=== PATIENT | female | born 1930 | race African-American/Black ===

== ENCOUNTER 2017-05-28 12:40 | Inpatient (IN) | payer MEDICARE, MEDICAID ==
[~2017-05-28] VITALS: Ht 167.6 cm; Wt 59.9 kg
[2017-05-28] MEDS ORDERED: AMLO2.5T2 PO (12:56)
[2017-05-28] MEDS ORDERED: OLME20TA14 PO (12:56)
[2017-05-28] MEDS ORDERED: MEMA10TA2 PO (12:56)
[2017-05-28] MEDS ORDERED: SIMV10TA6 PO (12:56)
[2017-05-28 14:28] LABS: BASOPHILS % 0.3 % (0.0-2.0); EOSINOPHILS % 0.1 % (0.0-5.0); HEMATOCRIT. 38.7 % (36.0-48.0); HEMOGLOBIN. 12.8 g/dL (12.0-16.0); MEAN CORPUSCULAR VOLUME 90.7 fL (81.0-99.0); MEAN PLATELET VOLUME 8.4 fl (7.4-10.4); MONOCYTES % 11.4 % (2.0-8.0); NEUTROPHILS % 78.2 % (40.0-76.0); PLATELET 211 x1000/uL (130-400); RED BLOOD CELL COUNT 4.27 mill/uL (4.2-5.4); RED CELL DISTRIBUTION WIDTH 14.7 % (11.6-14.6)
[2017-05-28 14:29] LABS: CHLORIDE 105 mEq/L (98-107)
[2017-05-28 14:31] LABS: INR 1.1; PROTHROMBIN TIME 11.8 sec (9.4-11.6)
[2017-05-28 14:46] LABS: CARBON DIOXIDE 28 mEq/L (21-32)
[2017-05-28] MEDS ORDERED: ACETAMINOPHEN 325MG TABLET PO ONE (15:30)
[2017-05-28] MEDS ORDERED: TRAMADOL 50MG TABLET PO ONE (17:45)
[2017-05-28 20:35] VITALS: BP 129/104
[2017-05-28 20:39] VITALS: BP 129/104
[2017-05-28] MEDS ORDERED: ONDANSETRON HCL 4MG/2ML VIAL IV PRN (21:15)
[2017-05-28] MEDS ORDERED: HYDROCODONE/ACETAMINOPHEN 5/325MG TABLET PO PRN (21:15)
[2017-05-28] MEDS ORDERED: LORAZEPAM 2MG/ML CPJ IV PRN (21:15)
[2017-05-28] MEDS ORDERED: MORPHINE SULFATE 2 MG/ML CPJ (NOT FOR IM USE) IV PRN (21:15)
[2017-05-28] MEDS: ENOXAPARIN 30MG/0.3ML SYR SUBCUT SCH (23:28)
[2017-05-28] MEDS: POTASSIUM CHLORIDE 20MEQ TABLET SR PO SCH (23:28)
[2017-05-28] MEDS: SODIUM CHLORIDE 0.9% 1,000 ML IV SCH (23:29)
[2017-05-29] VITALS: BP 105/70
[2017-05-29] MEDS ORDERED: DONE5TAB33 PO (02:19)
[2017-05-29] MEDS ORDERED: QUET25TA PO (02:19)
[2017-05-29] MEDS ORDERED: ZET10 PO (02:19)
[2017-05-29 04:00] VITALS: BP 146/71
[2017-05-29 08:00] VITALS: BP 143/71
[2017-05-29] MEDS: FOLIC ACID 1MG TABLET PO SCH (09:16)
[2017-05-29] MEDS: FERROUS SULFATE 325MG TABLET PO SCH (09:16)
[2017-05-29] MEDS: THIAMINE HCL 100MG TABLET PO SCH (09:16)
[2017-05-29] MEDS: ASPIRIN 81MG EC TABLET PO SCH (09:17)
[2017-05-29] MEDS: POTASSIUM CHLORIDE 20MEQ TABLET SR PO SCH (09:17)
[2017-05-29] MEDS ORDERED: PNEUMOCOCCAL 23-VAL P-SAC VAC 0.5 ML IM ONE (12:00)
[2017-05-29 12:01] VITALS: BP 131/80
[2017-05-29] MEDS ORDERED: MEMANTINE HCL 10MG TABLET PO SCH (16:45)
[2017-05-29] MEDS: AMLODIPINE 10MG TABLET PO SCH (16:45)
[2017-05-29 16:58] VITALS: BP 106/64
[2017-05-29] MEDS: QUETIAPINE FUMARATE 25MG TABLET PO SCH (18:11)
[2017-05-29] MEDS: DONEPEZIL HCL 5MG TABLET PO SCH (18:11)
[2017-05-29] MEDS: SODIUM CHLORIDE 0.9% 1,000 ML IV SCH (18:12)
[2017-05-29 20:00] VITALS: BP 102/52
[2017-05-29 20:27] LABS: BASOPHILS % 0.3 % (0.0-2.0); EOSINOPHILS % 0.4 % (0.0-5.0); HEMATOCRIT. 37.1 % (36.0-48.0); HEMOGLOBIN. 12.2 g/dL (12.0-16.0); LYMPHOCYTES % 13.7 % (20.0-50.0); MEAN CORPUSCULAR VOLUME 91.5 fL (81.0-99.0); MEAN PLATELET VOLUME 8.9 fl (7.4-10.4); MONOCYTES % 8.9 % (2.0-8.0); NEUTROPHILS % 76.7 % (40.0-76.0); PLATELET 230 x1000/uL (130-400); RED BLOOD CELL COUNT 4.06 mill/uL (4.2-5.4); RED CELL DISTRIBUTION WIDTH 15.2 % (11.6-14.6)
[2017-05-29 20:37] LABS: CARBON DIOXIDE 29 mEq/L (21-32); CHLORIDE 112 mEq/L (98-107)
[2017-05-29] MEDS: MEMANTINE HCL 10MG TABLET PO SCH (21:26)
[2017-05-29] MEDS: ENOXAPARIN 30MG/0.3ML SYR SUBCUT SCH (23:11)
[2017-05-30] VITALS: BP 93/50
[2017-05-30 04:00] VITALS: BP 139/56
[2017-05-30 08:00] VITALS: BP 132/77
[2017-05-30] MEDS ORDERED: LORAZEPAM 2MG/ML CPJ IM PRN (08:45)
[2017-05-30] MEDS: EZETIMIBE 10MG TABLET PO SCH (09:08)
[2017-05-30] MEDS: MEMANTINE HCL 10MG TABLET PO SCH ×2 (09:09→22:14)
[2017-05-30] MEDS: AMLODIPINE 10MG TABLET PO SCH (09:09)
[2017-05-30] MEDS: DONEPEZIL HCL 5MG TABLET PO SCH ×2 (09:09→18:06)
[2017-05-30] MEDS: THIAMINE HCL 100MG TABLET PO SCH (09:09)
[2017-05-30] MEDS: FOLIC ACID 1MG TABLET PO SCH (09:09)
[2017-05-30] MEDS: ASPIRIN 81MG EC TABLET PO SCH (09:09)
[2017-05-30] MEDS: QUETIAPINE FUMARATE 25MG TABLET PO SCH ×2 (09:09→18:06)
[2017-05-30] MEDS: FERROUS SULFATE 325MG TABLET PO SCH (09:09)
[2017-05-30] MEDS: POTASSIUM CHLORIDE 20MEQ TABLET SR PO SCH (09:09)
[2017-05-30] MEDS: LORAZEPAM 2MG/ML CPJ IV PRN ×2 (09:10→12:46)
[2017-05-30 09:17] LABS: BASOPHILS % 0.3 % (0.0-2.0); EOSINOPHILS % 0.6 % (0.0-5.0); HEMATOCRIT. 40.3 % (36.0-48.0); HEMOGLOBIN. 13.2 g/dL (12.0-16.0); LYMPHOCYTES % 22.6 % (20.0-50.0); MEAN CORPUSCULAR VOLUME 91.7 fL (81.0-99.0); MEAN PLATELET VOLUME 8.2 fl (7.4-10.4); MONOCYTES % 10.5 % (2.0-8.0); PLATELET 228 x1000/uL (130-400); RED BLOOD CELL COUNT 4.39 mill/uL (4.2-5.4)
[2017-05-30 09:44] LABS: CARBON DIOXIDE 28 mEq/L (21-32); CHLORIDE 110 mEq/L (98-107)
[2017-05-30 11:50] VITALS: BP 141/93
[2017-05-30] MEDS: SODIUM CHLORIDE 0.9% 1,000 ML IV SCH (12:45)
[2017-05-30 16:00] VITALS: BP 129/78
[2017-05-30] MEDS ORDERED: COLCHICINE 0.6MG TABLET PO NR (17:15)
[2017-05-30] MEDS: LIDOCAINE 5% PATCH TOP SCH (18:53)
[2017-05-30 20:00] VITALS: BP 163/85
[2017-05-30] MEDS: ENOXAPARIN 30MG/0.3ML SYR SUBCUT SCH (22:14)
[2017-05-31] VITALS: BP 130/99
[2017-05-31 04:00] VITALS: BP 145/87
[2017-05-31 08:48] VITALS: BP 137/79
[2017-05-31] MEDS: POTASSIUM CHLORIDE 20MEQ TABLET SR PO SCH (09:02)
[2017-05-31] MEDS: AMLODIPINE 10MG TABLET PO SCH (09:03)
[2017-05-31] MEDS: EZETIMIBE 10MG TABLET PO SCH (09:03)
[2017-05-31] MEDS: COLCHICINE 0.6MG TABLET PO SCH (09:03)
[2017-05-31] MEDS: THIAMINE HCL 100MG TABLET PO SCH (09:03)
[2017-05-31] MEDS: DONEPEZIL HCL 5MG TABLET PO SCH ×2 (09:03→16:28)
[2017-05-31] MEDS: FOLIC ACID 1MG TABLET PO SCH (09:03)
[2017-05-31] MEDS: QUETIAPINE FUMARATE 25MG TABLET PO SCH ×2 (09:03→16:28)
[2017-05-31] MEDS: MEMANTINE HCL 10MG TABLET PO SCH ×2 (09:03→21:22)
[2017-05-31] MEDS: FERROUS SULFATE 325MG TABLET PO SCH (09:03)
[2017-05-31] MEDS: ASPIRIN 81MG EC TABLET PO SCH (09:03)
[2017-05-31] MEDS: MULTIVITAMINS,THER W-MINERALS TABLET PO SCH (10:27)
[2017-05-31 12:00] VITALS: BP 146/88
[2017-05-31 16:00] VITALS: BP 98/55
[2017-05-31] MEDS: SODIUM CHLORIDE 0.9% 1,000 ML IV SCH (16:28)
[2017-05-31] MEDS: LIDOCAINE 5% PATCH TOP SCH (17:23)
[2017-05-31] MEDS: ENOXAPARIN 30MG/0.3ML SYR SUBCUT SCH (23:14)
[2017-06-01] VITALS: BP 101/60
[2017-06-01 00:08] LABS: VITAMIN B12 SERUM 823 pg/mL (211-911)
[2017-06-01 04:00] VITALS: BP 121/67
[2017-06-01] MEDS: FERROUS SULFATE 325MG TABLET PO SCH (08:52)
[2017-06-01] MEDS: COLCHICINE 0.6MG TABLET PO SCH (08:52)
[2017-06-01] MEDS: ASPIRIN 81MG EC TABLET PO SCH (08:52)
[2017-06-01] MEDS: QUETIAPINE FUMARATE 25MG TABLET PO SCH ×2 (08:53→16:41)
[2017-06-01] MEDS: FOLIC ACID 1MG TABLET PO SCH (08:53)
[2017-06-01] MEDS: DONEPEZIL HCL 5MG TABLET PO SCH ×2 (08:53→16:41)
[2017-06-01] MEDS: THIAMINE HCL 100MG TABLET PO SCH (08:53)
[2017-06-01] MEDS: EZETIMIBE 10MG TABLET PO SCH (08:53)
[2017-06-01] MEDS: MEMANTINE HCL 10MG TABLET PO SCH ×2 (08:53→21:13)
[2017-06-01] MEDS: POTASSIUM CHLORIDE 20MEQ TABLET SR PO SCH (08:53)
[2017-06-01] MEDS: AMLODIPINE 10MG TABLET PO SCH (08:53)
[2017-06-01] MEDS: MULTIVITAMINS,THER W-MINERALS TABLET PO SCH (08:53)
[2017-06-01] MEDS: DEXT 5%/0.9% NACL 1,000 ML IV SCH (11:38)
[2017-06-01] MEDS ORDERED: NA PHOS,M-B/NA PHOS,DI-BA ENEMA 118ML PR SCH (11:45)
[2017-06-01] MEDS ORDERED: NA PHOS,M-B/NA PHOS,DI-BA ENEMA 118ML PR PRN (11:45)
[2017-06-01] MEDS: LACTULOSE 20G/30ML UDC PO SCH ×3 (13:55→21:13)
[2017-06-01] MEDS: MELOXICAM 7.5MG TABLET PO SCH (13:55)
[2017-06-01] MEDS: BLOOD SUGAR DIAGNOSTIC STRIP TEST SCH ×2 (14:39→22:00)
[2017-06-01] MEDS: DOCUSATE SODIUM 100MG CAPSULE PO SCH (16:41)
[2017-06-01] MEDS: LIDOCAINE 5% PATCH TOP SCH (16:43)
[2017-06-01 16:45] VITALS: BP 121/61
[2017-06-01 17:45] LABS: BASOPHILS % 0.2 % (0.0-2.0); EOSINOPHILS % 0.1 % (0.0-5.0); HEMATOCRIT. 34.6 % (36.0-48.0); HEMOGLOBIN. 11.4 g/dL (12.0-16.0); LYMPHOCYTES % 13.4 % (20.0-50.0); MEAN CORPUSCULAR HEMOGLOBIN 29.8 pg (28.0-32.0); MEAN CORPUSCULAR VOLUME 90.1 fL (81.0-99.0); MEAN PLATELET VOLUME 8.5 fl (7.4-10.4); MONOCYTES % 6.1 % (2.0-8.0); NEUTROPHILS % 80.2 % (40.0-76.0); PLATELET 302 x1000/uL (130-400); RED BLOOD CELL COUNT 3.84 mill/uL (4.2-5.4); RED CELL DISTRIBUTION WIDTH 14.6 % (11.6-14.6)
[2017-06-01 17:57] LABS: CARBON DIOXIDE 29 mEq/L (21-32); CHLORIDE 109 mEq/L (98-107)
[2017-06-01 20:00] VITALS: BP 123/72
[2017-06-01] MEDS: POLYETHYLENE GLYCOL 3350 (17GM) 1 DOSE PACK PO SCH (21:13)
[2017-06-01] MEDS: ENOXAPARIN 30MG/0.3ML SYR SUBCUT SCH (22:02)
[2017-06-02] VITALS: BP 145/87
[2017-06-02 04:00] VITALS: BP 115/53
[2017-06-02] MEDS: DEXT 5%/0.9% NACL 1,000 ML IV SCH (05:31)
[2017-06-02] MEDS: BLOOD SUGAR DIAGNOSTIC STRIP TEST SCH ×3 (05:36→22:00)
[2017-06-02 08:00] VITALS: BP 135/84
[2017-06-02] MEDS: DONEPEZIL HCL 5MG TABLET PO SCH ×2 (08:10→17:07)
[2017-06-02] MEDS: AMLODIPINE 10MG TABLET PO SCH (08:11)
[2017-06-02] MEDS: QUETIAPINE FUMARATE 25MG TABLET PO SCH ×2 (08:11→17:07)
[2017-06-02] MEDS: DOCUSATE SODIUM 100MG CAPSULE PO SCH ×2 (08:11→17:07)
[2017-06-02] MEDS: FERROUS SULFATE 325MG TABLET PO SCH (08:11)
[2017-06-02] MEDS: THIAMINE HCL 100MG TABLET PO SCH (08:11)
[2017-06-02] MEDS: FOLIC ACID 1MG TABLET PO SCH (08:11)
[2017-06-02] MEDS: EZETIMIBE 10MG TABLET PO SCH (08:11)
[2017-06-02] MEDS: MULTIVITAMINS,THER W-MINERALS TABLET PO SCH (08:12)
[2017-06-02] MEDS: ASPIRIN 81MG EC TABLET PO SCH (08:12)
[2017-06-02] MEDS: POTASSIUM CHLORIDE 20MEQ TABLET SR PO SCH (08:12)
[2017-06-02] MEDS: MELOXICAM 7.5MG TABLET PO SCH (08:12)
[2017-06-02] MEDS: MEMANTINE HCL 10MG TABLET PO SCH ×2 (08:12→21:41)
[2017-06-02 10:29] LABS: BASOPHILS % 0.3 % (0.0-2.0); EOSINOPHILS % 0.5 % (0.0-5.0); HEMATOCRIT. 36.9 % (36.0-48.0); HEMOGLOBIN. 12.2 g/dL (12.0-16.0); LYMPHOCYTES % 16.8 % (20.0-50.0); MEAN CORPUSCULAR HEMOGLOBIN 29.7 pg (28.0-32.0); MEAN CORPUSCULAR VOLUME 89.7 fL (81.0-99.0); MEAN PLATELET VOLUME 8.5 fl (7.4-10.4); MONOCYTES % 7.5 % (2.0-8.0); NEUTROPHILS % 74.9 % (40.0-76.0); PLATELET 361 x1000/uL (130-400); RED BLOOD CELL COUNT 4.11 mill/uL (4.2-5.4); RED CELL DISTRIBUTION WIDTH 14.8 % (11.6-14.6)
[2017-06-02 10:58] LABS: CARBON DIOXIDE 31 mEq/L (21-32); CHLORIDE 104 mEq/L (98-107)
[2017-06-02 12:00] VITALS: BP 194/91
[2017-06-02 16:00] VITALS: BP 173/90
[2017-06-02] MEDS: LIDOCAINE 5% PATCH TOP SCH (17:06)
[2017-06-02 20:00] VITALS: BP 144/81
[2017-06-02] MEDS: POLYETHYLENE GLYCOL 3350 (17GM) 1 DOSE PACK PO SCH (21:41)
[2017-06-02] MEDS: ENOXAPARIN 30MG/0.3ML SYR SUBCUT SCH (23:13)
[2017-06-03] VITALS (7 sets, daily range): BP systolic 115–181; BP diastolic 75–90
[2017-06-03 08:13] LABS: CLARITY URINE CLEAR (CLEAR); COLOR URINE YELLOW (YELLOW); GLUCOSE URINE NEGATIVE (NEGATIVE); KETONES URINE NEGATIVE (NEGATIVE); LEUKOCYTE ESTERASE URINE NEGATIVE (NEGATIVE); NITRITE URINE NEGATIVE (NEGATIVE); OCCULT BLOOD URINE NEGATIVE (NEGATIVE); PROTEIN URINE NEGATIVE (NEGATIVE); SPECIFIC GRAVITY URINE 1.014 (1.005-1.030)
[2017-06-03] MEDS: DOCUSATE SODIUM 100MG CAPSULE PO SCH ×2 (09:36→17:00)
[2017-06-03] MEDS: DEXT 5%/0.9% NACL 1,000 ML IV SCH (09:36)
[2017-06-03] MEDS: EZETIMIBE 10MG TABLET PO SCH (09:37)
[2017-06-03] MEDS: DONEPEZIL HCL 5MG TABLET PO SCH ×2 (09:37→17:00)
[2017-06-03] MEDS: MELOXICAM 7.5MG TABLET PO SCH (09:37)
[2017-06-03] MEDS: QUETIAPINE FUMARATE 25MG TABLET PO SCH ×2 (09:37→17:00)
[2017-06-03] MEDS: ASPIRIN 81MG EC TABLET PO SCH (09:37)
[2017-06-03] MEDS: POTASSIUM CHLORIDE 20MEQ TABLET SR PO SCH (09:37)
[2017-06-03] MEDS: MEMANTINE HCL 10MG TABLET PO SCH (09:37)
[2017-06-03] MEDS: FERROUS SULFATE 325MG TABLET PO SCH (09:37)
[2017-06-03] MEDS: THIAMINE HCL 100MG TABLET PO SCH (09:37)
[2017-06-03] MEDS: MULTIVITAMINS,THER W-MINERALS TABLET PO SCH (09:37)
[2017-06-03] MEDS: AMLODIPINE 10MG TABLET PO SCH (09:37)
[2017-06-03] MEDS: FOLIC ACID 1MG TABLET PO SCH (09:37)
[2017-06-03] MEDS: BLOOD SUGAR DIAGNOSTIC STRIP TEST SCH (13:20)
[2017-06-03] MEDS: LIDOCAINE 5% PATCH TOP SCH (17:27)
== END 2017-06-03 20:50 | DRG 557 ==
LOC: ER 13:58 → 8WST 17:31 → ENRESERV 18:32
PROVIDERS: ADMIT Internal Medicine Nephrology; ATTEND Internal Medicine Nephrology
PROC: 0S993ZZ Drainage of Right Hip Joint, Percutaneous Approach (ICD-10-PCS; principal; 2017-05-31)
PROC: 0S9C3ZZ Drainage of Right Knee Joint, Percutaneous Approach (ICD-10-PCS; 2017-05-31)
PROC: 3E0U33Z Introduction of Anti-inflammatory into Joints, Percutaneous Approach (ICD-10-PCS; 2017-05-31)
PROC: 3E0U3BZ Introduction of Anesthetic Agent into Joints, Percutaneous Approach (ICD-10-PCS; 2017-05-31)
DX: M70.71 Other bursitis of hip, right hip (principal); E43 Unspecified severe protein-calorie malnutrition; E87.0 Hyperosmolality and hypernatremia; E87.5 Hyperkalemia; G30.9 Alzheimer's disease, unspecified; F02.80 Dementia in other diseases classified elsewhere, unspecified severity, without behavioral disturbance, psychotic disturbance, mood disturbance, and anxiety; M16.11 Unilateral primary osteoarthritis, right hip; I10 Essential (primary) hypertension; M17.11 Unilateral primary osteoarthritis, right knee; R62.7 Adult failure to thrive; D72.829 Elevated white blood cell count, unspecified; E78.00 Pure hypercholesterolemia, unspecified; M85.80 Other specified disorders of bone density and structure, unspecified site; Z79.82 Long term (current) use of aspirin; Z79.899 Other long term (current) drug therapy; Z88.0 Allergy status to penicillin; Z95.0 Presence of cardiac pacemaker; Z68.21 Body mass index [BMI] 21.0-21.9, adult
CPT/HCPCS: 36415; 70450; 71010; 72170; 73552; 73562; 73590; 73700; 80048; 80053; 81003; 82607; 82962; 83735; 84443; 84550; 85025; 85610; 90732; 92610; 93970; 96360; 96372; 97162; 97166; 99285; A6261; J1650; J2060; J7030; J7042